=== PATIENT | male | born 1975 | race Caucasian/White ===

== ENCOUNTER 2018-04-07 15:21 | Emergency (ER) | payer MEDICAID ==
[2018-04-07] MEDS ORDERED: NS 1,000 ML IV ONE ×2 (15:36→16:14)
--- NOTE | 2018-04-07 15:36 | EDPHY ---
H & P Time Seen by Provider: 04/07/18 15:26 HPI/ROS: Chief complaint. Abdominal pain HPI. 42-year-old male presents to the emergency department with abdominal pain for apparently a couple days. He says he has been cold and clammy and shaky for 2 days. No fever but just can't get warm. Slight sore throat but no congestion. Mid abdominal pain. No vomiting or diarrhea. No history of abdominal problems or previous abdominal surgery. He says his urine is yellow red. Otherwise no chest discomfort or trouble breathing. No cough. ROS Constitutional. Possible chills Eyes. no problems with vision ENT. sore throat, no nasal drainage Cardiovascular. no chest pain Respiratory. no shortness of breath, no cough Abdominal. Left side abdominal pain . no problems urinating MS. no calf pain/swelling, no neck/back pain, no joint pain Skin. no rash Lymph. no swollen glands Neuro. no headache, no dizziness, no difficulty walking or with speech Past Medical/Surgical History: Denies past medical history Social History: Single, daily smoker, no alcohol Smoking Status: Current some day smoker Physical Exam: General Appearance: Alert well-developed male mild distress vital signs stable. Afebrile Eyes: Pupils equal and round no pallor or injection. ENT, Mouth: Mucous membranes are moist. No pharyngeal injection Respiratory: There are no retractions, lungs are clear to auscultation. Cardiovascular: Regular rate and rhythm. Gastrointestinal: Abdomen is soft with tenderness at McBurney's point and rebound tenderness. Some tenderness on the left side. Normal bowel sounds. No masses. Neurological: Awake and alert, sensory and motor exams grossly normal. Skin: Warm and dry, no rashes. Musculoskeletal: Neck is supple nontender. Extremities symmetrical, full range of motion. Psychiatric: Patient is oriented X 3, there is no agitation. Constitutional: Initial Vital Signs Temperature (C) 36.7 C 04/07/18 15:25 Heart Rate 81 04/07/18 15:25 Respiratory Rate 18 04/07/18 15:25 Blood Pressure 122/86 H 04/07/18 15:25 O2 Sat (%) 97 04/07/18 15:25 O2 Delivery Mode Room Air Allergies/Adverse Reactions: Penicillins Allergy (Unknown, Verified 03/08/13 14:02) aslo lists multiple psych meds Allergy (Unknown, Uncoded 03/08/13 14:02) Home Medications: Medication Instructions Recorded *Pharmacy Completed See Comment 03/08/13 03/08/13 Suzifkimberly Unk Dose 03/08/13 Medical Decision Making - Diagnostics Imaging Results: Imaging Impressions Abdomen CT 04/07/18 16:14 Impression: Limited study due to lack of intra-abdominal fat. There is significant stool within the colon, possibly related to constipation. The appendix is not confidently identified. Findings and recommendations discussed with ALEX LESLIE at 1650 hour, 2017. CT abdomen and pelvis with IV contrast shows constipation. Appendix is not well visualized. Reviewed by me and discussed with Radiology Procedures: IV normal saline ED Course/Re-evaluation: Re-evaluation at 5:00 p.m.. Patient and I discussed laboratory evaluation, imaging studies. We discussed treatment plan including criteria for return importance of follow-up and further evaluation. He expresses understanding and agreement Urine is concentrated but no evidence for urinary tract infection Re-evaluation again at 6:20 p.m.. Patient is stable. He he and I again discussed imaging and lab results including treatment plan and criteria for return and importance of follow-up and further evaluation. He again expresses understanding Differential Diagnosis: I considered diverticulitis, appendicitis, small-bowel obstruction, urinary tract infection - Data Points Laboratory Results: Laboratory Results 04/07/18 15:30 04/07/18 15:30 04/07/18 04/07/18 04/07/18 17:10 15:30 15:30 WBC RBC Hgb Hct MCV MCH MCHC RDW Plt Count MPV Neut % (Auto) Lymph % (Auto) Coles % (Auto) Eos % (Auto) Baso % (Auto) Nucleat RBC Rel Count Absolute Neuts (auto) Absolute Lymphs (auto) Absolute Monos (auto) Absolute Eos (auto) Absolute Basos (auto) Absolute Nucleated RBC Immature Gran % Immature Gran # Sodium 139 mEq/L mEq/L (135-145) Potassium 3.6 mEq/L mEq/L (3.3-5.0) Chloride 108 mEq/L mEq/L (97-110) Carbon Dioxide 19 mEq/l L mEq/l (22-31) Anion Gap 12 mEq/L mEq/L (8-16) BUN 22 mg/dL mg/dL (7-23) Creatinine 0.8 mg/dL mg/dL (0.7-1.3) Estimated GFR > 60 Glucose 76 mg/dL mg/dL (70-100) Calcium 9.5 mg/dL mg/dL (8.5-10.4) Total Bilirubin 1.1 mg/dL mg/dL (0.1-1.4) AST 47 IU/L IU/L (17-59) ALT 44 IU/L IU/L (21-72) Alkaline Phosphatase 83 IU/L IU/L (38-126) Total Protein 7.3 g/dL g/dL (6.3-8.2) Albumin 4.4 g/dL g/dL (3.5-5.0) Lipase 104 IU/L IU/L (23-300) Urine Color YELLOW Urine Appearance CLEAR Urine pH 5.0 (5.0-7.5) Ur Specific [place] > 1.035 H (1.002-1.030) Urine Protein NEGATIVE (NEGATIVE) Urine Ketones 1+ H (NEGATIVE) Urine Blood NEGATIVE (NEGATIVE) Urine Nitrate NEGATIVE (NEGATIVE) Urine Bilirubin NEGATIVE (NEGATIVE) Urine Urobilinogen NEGATIVE EU EU (0.2-1.0) Ur Leukocyte Esterase NEGATIVE (NEGATIVE) Urine RBC 1-3 /hpf /hpf (0-3) Urine WBC 1-3 /hpf /hpf (0-3) Ur Epithelial Cells TRACE /lpf /lpf (NONE-1+) Hyaline Casts 1-5 /lpf /lpf (0-1) Urine Mucus TRACE /lpf /lpf (NONE-1+) Urine Glucose NEGATIVE (NEGATIVE) Ethyl Alcohol < 10 mg/dL mg/dL (0-10) 04/07/18 15:30 WBC 6.82 10^3/uL 10^3/uL (3.80-9.50) RBC 5.23 10^6/uL 10^6/uL (4.40-6.38) Hgb 15.8 g/dL g/dL (13.7-17.5) Hct 44.7 % % (40.0-51.0) MCV 85.5 fL fL (81.5-99.8) MCH 30.2 pg pg (27.9-34.1) MCHC 35.3 g/dL g/dL (32.4-36.7) RDW 13.7 % % (11.5-15.2) Plt Count 215 10^3/uL 10^3/uL (150-400) MPV 9.3 fL fL (8.7-11.7) Neut % (Auto) 61.1 % % (39.3-74.2) Lymph % (Auto) 30.5 % % (15.0-45.0) Coles % (Auto) 6.7 % % (4.5-13.0) Eos % (Auto) 0.6 % % (0.6-7.6) Baso % (Auto) 1.0 % % (0.3-1.7) Nucleat RBC Rel Count 0.0 % % (0.0-0.2) Absolute Neuts (auto) 4.16 10^3/uL 10^3/uL (1.70-6.50) Absolute Lymphs (auto) 2.08 10^3/uL 10^3/uL (1.00-3.00) Absolute Monos (auto) 0.46 10^3/uL 10^3/uL (0.30-0.80) Absolute Eos (auto) 0.04 10^3/uL 10^3/uL (0.03-0.40) Absolute Basos (auto) 0.07 10^3/uL 10^3/uL (0.02-0.10) Absolute Nucleated RBC 0.00 10^3/uL 10^3/uL (0-0.01) Immature Gran % 0.1 % % (0.0-1.1) Immature Gran # 0.01 10^3/uL 10^3/uL (0.00-0.10) Sodium Potassium Chloride Carbon Dioxide Anion Gap BUN Creatinine Estimated GFR Glucose Calcium Total Bilirubin AST ALT Alkaline Phosphatase Total Protein Albumin Lipase Urine Color Urine Appearance Urine pH Ur Specific [place] Urine Protein Urine Ketones Urine Blood Urine Nitrate Urine Bilirubin Urine Urobilinogen Ur Leukocyte Esterase Urine RBC Urine WBC Ur Epithelial Cells Hyaline Casts Urine Mucus Urine Glucose Ethyl Alcohol Medications Given: Discontinued Medications Sodium Chloride (Ns) 1,000 mls @ 0 mls/hr IV EDNOW ONE; Wide Open PRN Reason: Protocol Stop: 04/07/18 15:37 Last Admin: 04/07/18 16:10 Dose: 1,000 mls Sodium Chloride (Ns) 1,000 mls @ 0 mls/hr IV EDNOW ONE; Wide Open PRN Reason: Protocol Stop: 04/07/18 16:15 Last Admin: 04/07/18 16:53 Dose: 1,000 mls Departure - Departure Disposition: Home, Routine, Self-Care Clinical Impression: Abdominal pain Qualifiers: Abdominal location: generalized Qualified Code(s): R10.84 - Generalized abdominal pain Condition: Good Instructions: High Fiber Diet (ED), Constipation (ED) Additional Instructions: Increased fluids including fruit and prune juice. Please purchase a bottle of magnesium citrate at the grocery store and drink the whole bottle to relieve your constipation Return for worsening abdominal pain, fever, vomiting. Recheck in 1-2 days if not improved Referrals: Patient,NotPresent [Unknown] - As per Instructions Marjorie Mejia MD [[facility] [place] - 1 day, if not improved
[2018-04-07 15:39] LABS: PLATELET COUNT 215 10^3/uL (150-400)
[2018-04-07] MEDS ORDERED: IOPAMIDOL (ISOVUE-300) 100 ML BTL ONE (16:18)
[2018-04-07 18:26] VITALS: BP 122/70
== END 2018-04-07 18:33 | disposition home or self-care (01) ==
LOC: EDUNIT#
DX: R10.84 Generalized abdominal pain (principal); E86.9 Volume depletion, unspecified
CPT/HCPCS: G0480; Q9967

== ENCOUNTER 2018-05-02 20:37 | Emergency (ER) | payer MEDICAID ==
[2018-05-02] MEDS ORDERED: ONDANSETRON DISINTEGRATING 4 MG TAB PO ONE (21:59)
[2018-05-02] MEDS ORDERED: NS 1,000 ML IV ONE (22:06)
--- NOTE | 2018-05-02 22:09 | EDPHY ---
H & P Stated Complaint: vomit x 1 Time Seen by Provider: 05/02/18 22:00 HPI/ROS: HPI The patient presents with abdominal pain and vomiting which began about 1 hr prior to presentation. At about 7 or 8:00 p.m. he had dinner of a hamburger at a fast food restaurant. After this he has had multiple episodes of nonbloody nonbilious emesis associated with diffuse aching abdominal pain. He has not had any diarrhea. He does not have a fever. He denies any sick contacts. He is brought in by ambulance. He was here on April 07 for abdominal pain with an unremarkable workup.. REVIEW OF SYSTEMS 10 systems were reviewed and negative with the exception of the elements mentioned in the history of present illness. PMHx: Psychiatric disease, patient is currently unsure of his diagnoses Soc Hx: Homeless, sleeps on the street, does not drink alcohol PHYSICAL General Appearance: Alert, no distress, disheveled with poor hygiene Eyes: Pupils equal and round no pallor or injection ENT, Mouth: Mucous membranes moist Respiratory: There are no retractions, lungs are clear to auscultation Cardiovascular: Regular rate and rhythm Gastrointestinal: Abdomen is soft and mildly diffusely tender, no masses, bowel sounds normal Neurological: A&O, moves all extremities Skin: Warm and dry, no rashes Musculoskeletal: Neck is supple non tender Extremities: symmetrical, full range of motion Psychiatric: Patient is oriented X 3, there is no agitation Source: Patient Exam Limitations: No limitations - Personal History Current Tetanus/Diphtheria Vaccine: Unsure Current Tetanus Diphtheria and Acellular Pertussis (TDAP): Unsure - Medical/Surgical History Hx Asthma: No Hx Chronic Respiratory Disease: No Hx Diabetes: No Hx Cardiac Disease: No Hx Renal Disease: No Hx Cirrhosis: No Hx Alcoholism: Yes Hx HIV/AIDS: No Hx Splenectomy or Spleen Trauma: No Other PMH: pt denies past med hx. poor historian - Social History Smoking Status: Current some day smoker Constitutional: Initial Vital Signs Temperature (C) 36.7 C 05/02/18 20:43 Heart Rate 59 L 05/02/18 20:43 Respiratory Rate 16 05/02/18 20:43 Blood Pressure 152/100 H 05/02/18 20:43 O2 Sat (%) 95 05/02/18 20:43 O2 Delivery Mode Room Air Allergies/Adverse Reactions: Penicillins Allergy (Unknown, Verified 03/08/13 14:02) aslo lists multiple psych meds Allergy (Unknown, Uncoded 03/08/13 14:02) Home Medications: Medication Instructions Recorded *Pharmacy Completed See Comment 03/08/13 03/08/13 Girma Unk Dose 03/08/13 Medical Decision Making Differential Diagnosis: 42-year-old homeless male with past psychiatric disease presents with several hours of nausea and vomiting after eating dinner associated with diffuse abdominal pain. On exam, he is uncomfortable and groaning, he is having active vomiting. While he has diffuse tenderness of his abdomen this is quite mild. He was here recently for a similar episode. Differential diagnosis includes toxin mediated enterocolitis, viral gastroenteritis, appendicitis. In the emergency department, patient was given Zofran 0 DT and 1 L of fluid with improvement in his symptoms. - Data Points Laboratory Results: Laboratory Results 05/02/18 22:46 05/02/18 22:46 05/02/18 05/02/18 22:46 22:46 WBC 13.10 10^3/uL H 10^3/uL (3.80-9.50) RBC 5.05 10^6/uL 10^6/uL (4.40-6.38) Hgb 15.4 g/dL g/dL (13.7-17.5) Hct 44.2 % % (40.0-51.0) MCV 87.5 fL fL (81.5-99.8) MCH 30.5 pg pg (27.9-34.1) MCHC 34.8 g/dL g/dL (32.4-36.7) RDW 13.8 % % (11.5-15.2) Plt Count 248 10^3/uL 10^3/uL (150-400) MPV 8.9 fL fL (8.7-11.7) Neut % (Auto) 83.2 % H % (39.3-74.2) Lymph % (Auto) 12.7 % L % (15.0-45.0) Hall % (Auto) 3.1 % L % (4.5-13.0) Eos % (Auto) 0.2 % L % (0.6-7.6) Baso % (Auto) 0.3 % % (0.3-1.7) Nucleat RBC Rel Count 0.0 % % (0.0-0.2) Absolute Neuts (auto) 10.90 10^3/uL H 10^3/uL (1.70-6.50) Absolute Lymphs (auto) 1.66 10^3/uL 10^3/uL (1.00-3.00) Absolute Monos (auto) 0.41 10^3/uL 10^3/uL (0.30-0.80) Absolute Eos (auto) 0.03 10^3/uL 10^3/uL (0.03-0.40) Absolute Basos (auto) 0.04 10^3/uL 10^3/uL (0.02-0.10) Absolute Nucleated RBC 0.00 10^3/uL 10^3/uL (0-0.01) Immature Gran % 0.5 % % (0.0-1.1) Immature Gran # 0.06 10^3/uL 10^3/uL (0.00-0.10) Sodium 136 mEq/L mEq/L (135-145) Potassium 3.7 mEq/L mEq/L (3.3-5.0) Chloride 101 mEq/L mEq/L (97-110) Carbon Dioxide 25 mEq/l mEq/l (22-31) Anion Gap 10 mEq/L mEq/L (8-16) BUN 20 mg/dL mg/dL (7-23) Creatinine 0.7 mg/dL mg/dL (0.7-1.3) Estimated GFR > 60 Glucose 115 mg/dL H mg/dL (70-100) Calcium 9.8 mg/dL mg/dL (8.5-10.4) Total Bilirubin 0.6 mg/dL mg/dL (0.1-1.4) AST 56 IU/L IU/L (17-59) ALT 75 IU/L H IU/L (21-72) Alkaline Phosphatase 91 IU/L IU/L (38-126) Total Protein 7.4 g/dL g/dL (6.3-8.2) Albumin 4.3 g/dL g/dL (3.5-5.0) Lipase 73 IU/L IU/L (23-300) Medications Given: Discontinued Medications Sodium Chloride (Ns) 1,000 mls @ 0 mls/hr IV EDNOW ONE; Wide Open PRN Reason: Protocol Stop: 05/02/18 22:07 Last Admin: 05/02/18 22:52 Dose: 1,000 mls Ondansetron HCl (Zofran Odt) 4 mg PO EDNOW ONE Stop: 05/02/18 22:00 Last Admin: 05/02/18 22:05 Dose: 4 mg Departure - Departure Disposition: Home, Routine, Self-Care Clinical Impression: Vomiting Qualifiers: Vomiting type: unspecified Vomiting Intractability: non-intractable Nausea presence: without nausea Qualified Code(s): R11.11 - Vomiting without nausea Condition: Good Instructions: Acute Nausea and Vomiting (ED) Additional Instructions: Please return to the emergency department if you are worse in any way. Referrals: [facility],. [Clinic] - As per Instructions
[2018-05-02 23:05] LABS: PLATELET COUNT 248 10^3/uL (150-400)
[2018-05-02] MEDS ORDERED: ONDANSETRON 4MG PREPACK#2 BTL TAKEHOME ONE (23:40)
[2018-05-03 00:04] VITALS: BP 148/82
== END 2018-05-03 00:05 | disposition home or self-care (01) ==
LOC: EDUNIT#
DX: R11.10 Vomiting, unspecified (principal); E86.9 Volume depletion, unspecified; F17.200 Nicotine dependence, unspecified, uncomplicated; Z59.0 Homelessness

== ENCOUNTER 2018-10-26 16:18 | Inpatient (IN) | payer MEDICAID, OTHER ==
[2018-10-26 16:42] LABS: PLATELET COUNT 291 10^3/uL (150-400)
[2018-10-26] MEDS ORDERED: OLANZapine DISINTEGR 10 MG TAB PO ONE (16:49)
--- NOTE | 2018-10-26 16:49 | EDPHY ---
H & P Stated Complaint: Talking nonsense-throwing objects at cars - Medical/Surgical History Hx Asthma: No Hx Chronic Respiratory Disease: No Hx Diabetes: No Hx Cardiac Disease: No Hx Renal Disease: No Hx Cirrhosis: No Hx Alcoholism: Yes Hx HIV/AIDS: No Hx Splenectomy or Spleen Trauma: No Other PMH: pt denies past med hx. poor historian - Social History Smoking Status: Current some day smoker Time Seen by Provider: 10/26/18 16:21 HPI/ROS: CHIEF COMPLAINT: Rambling speech HISTORY OF PRESENT ILLNESS: 43-year-old male with to so affective disorder presents with rambling speech. He was walking on [place] this afternoon, speaking nonsensically and throwing objects at cars. He was picked up by police and brought to the emergency department. He is unable to provide any clinical history. REVIEW OF SYSTEMS: Unable to obtain (Jasmine Lee) - Physical Exam Exam: General Appearance: Alert, disheveled, speaking nonsensically Eyes: Pupils equal and round, no conjunctival pallor or injection ENT, Mouth: Mucous membranes moist Neck: Normal inspection Respiratory: Lungs are clear to auscultation Cardiovascular: Regular rate and rhythm Gastrointestinal: Abdomen is soft and nontender Neurological: Alert, nonfocal exam Skin: Warm and dry Extremities: Normal inspection Psychiatric: Nonsensical speech, does not appear anxious (Jasmine Lee) Constitutional: Initial Vital Signs Temperature (C) 36.5 C 10/26/18 16:26 Heart Rate 92 10/26/18 16:26 Respiratory Rate 20 10/26/18 16:26 Blood Pressure 117/66 10/26/18 16:26 O2 Sat (%) 92 10/26/18 16:26 O2 Delivery Mode Room Air Allergies/Adverse Reactions: Penicillins Allergy (Unknown, Verified 03/08/13 14:02) aslo lists multiple psych meds Allergy (Unknown, Uncoded 03/08/13 14:02) Home Medications: Medication Instructions Recorded *Pharmacy Completed See Comment 03/08/13 03/08/13 Abilify Unk Dose 03/08/13 Medical Decision Making ED Course/Re-evaluation: This patient presents with acute psychosis. He was placed on an M1 hold by ne. Zyprexa 10 mg ODT given. Old medical record reviewed. Admitted in 2012 for schizoaffective disorder. Urine tox screen positive for amphetamines. The patient will need to wait until tomorrow morning for mental health evaluation. 11:00 p.m.-signed over to Dr. Salinas at shift change. (Jasmine Lee) Other Provider: [address] Lee pending mental health evaluation in the morning. 0700 patient signed out to Dr. Banerjee pending evaluation. No issues during my care this patient overnight. (Ty Salinas) Patient accepted at [address] [place] [address] by practitioner Chery. Transfer paperwork completed (Armaan Banerjee) - Data Points Laboratory Results: Laboratory Results 10/26/18 16:20 10/26/18 16:20 10/26/18 19:15 Urine Opiates Screen NEGATIVE (NEGATIVE) Urine Barbiturates NEGATIVE (NEGATIVE) Ur Phencyclidine Scrn NEGATIVE (NEGATIVE) Ur Amphetamine Screen NON-NEGATIVE H (NEGATIVE) U Benzodiazepines Scrn NEGATIVE (NEGATIVE) Urine Cocaine Screen NEGATIVE (NEGATIVE) U Marijuana (THC) Screen NON-NEGATIVE H (NEGATIVE) Medications Given: Discontinued Medications Olanzapine (Zyprexa Zydis) 10 mg PO EDNOW ONE Stop: 10/26/18 16:50 Last Admin: 10/26/18 16:57 Dose: 10 mg Departure - Departure Disposition: [facility] IP Clinical Impression: Acute psychosis Condition: Fair Referrals: Patient,NotPresent [Primary Care Provider] - As per Instructions
--- NOTE | 2018-10-26 20:43 | ASMTLCPROG ---
Notes Note: Notes: This press writer attempted to wake pt for evaluation. Pt only mumbled responses. Pt appears too sedated for evaluation at this time. Date Signed: 10/26/2018 08:43 PM Electronically Signed By:Michaela Rush
--- NOTE | 2018-10-27 07:49 | ASMTTLCEVL ---
TLC Evaluation - Basic Information Evaluation Start Date and 10/27/2018 06:45 AM Time Hospital Status Answers: M1 Hold 72-hr M1 Hold Start Date 10/26/2018 05:45 PM and Time Narrative Notes: Pt is a 43 yo, homeless, unemployed, male with known history of schizoaffective disorder-bipolar type, alcohol use disorder, amphetamine use disorder, and cannabis use disorder, who was walking on [address], speaking nonsensically and throwing objects at cars and was brought to [facility] ED by [employer] then placed on M1 hold by ED provider which noted: Pt found walking outside with nonsensical speech and throwing objects at cars. Pt was unable to provide any clinical history to the ED provider and did not appear to be a reliable historian. BAL was zero. UDS results were positive for amphetamine and marijuana. Diagnosis History Notes: Schizoaffective Disorder, Bipolar Type; Alcohol Use Disorder, severe; Amphetamine-Type Substance Use Disorder, severe; Cannabis Use Disorder, severe. Prior suicide attempts Notes: None noted per prior records. Prior hospitalizations Notes: [facility] in 2006; [place] in the winter of 2011; [facility] from 03/08/13 to 03/21/13 and his father and sister were contacted who wanted him to return to [place] via bus and arrangements were made for a bus ticket to [facility]. Pt was to continue medications and follow up with a psychiatrist in [place]. Treatment Responses Notes: Pt has history of noncompliance with medication and treatment follow up. History of violence Notes: Pt has prior history of an assault arrest in 2009. Therapist: None. Psychiatrist: None. Medications (name, dosage, route, freq uency) Notes: Pt has been off his medications. He was administered Zyprexa Zydis 10 mg po at 1657 hrs. Prior records noted that pt had referenced taking Abilify, [place], Trilafon, Geodon and Seroquel in the past and had stated that none of them were helpful and tended to make him tired and have no thoughts. He was particularly disdainful of his past experience with Risperdal. While at [facility] 3 in 2012, pt agreed to take Invega Sustenna 6 mg daily and given Invega Sustenna injection 234 mg IM on 03/12/13. He was given a booster of Invega Sustenna of 156 mg on 03/19/13 and po Invega was discontinued on 03/20/13. He was started on Hop[place] Carbonate ER 1500 mg. Allergies/Reaction Notes: Penicillin, and prior records noted pt is lactose intolerant. Sleep Notes: Decreased. Appetite Notes: Decreased. Medical/Surgical history Notes: Noncontributory. Substance use history (frequency, intensity, his tory, duration) Notes: BAL was zero. UDS results were positive for amphetamine and marijuana. Prior records reflected a history of alcohol and cannabis dependence and that he acknowledged being a meth addict but said he quit in 2010. Family composition Notes: Pts father had reportedly since pts last admission to [address] [place] [address] in 2012. Pt has a sister and a step-mother ([facility]) [phone] who reside in [place]. Need for family Answers: No participation in patient's care Family psychiatric/substance abuse history Notes: Prior records noted pt denied awareness of any family history of mental illness. Developmental history Notes: Pt is originally from [place], [place]. Otherwise, unknown per prior records and pt currently not a reliable historian. Abuse concerns Answers: None Marital status/children Notes: Pt is single, never no dependents. Living situation Notes: Homeless. Sexual history/orientation Notes: Not active. Heterosexual. Peer support/family strengths Notes: None identified. Education level/history Notes: He dropped out of school in the 10th grade. Work history Notes: Not employed. 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 Notes: None. Legal Notes: Pt was in [facility] in 2009 for assault and had been in the PACE program in [facility] and took Abilify and [place] and reported taking them only because they were a condition of his probation, which ended in April 2012. Moravian/Spiritual Notes: None reported which might impact treatment. Leisure Notes: None reported. Collateral Notes: Prior [facility] records; [facility]. Patient's strengths Answers: Artistic/Creative/Musical (Please select at least TWO strengths): Athletic TLC Evaluation - Mental Status Exam Appearance: Answers: Unclean Unkempt Disheveled Eye Contact: Answers: Avoiding Mood: Answers: Irritable Labile Affect: Answers: Distracted Guarded Irritable Labile Subdued Suspicious Behavior: Answers: Uncooperative Anxious Erratic Guarded Impulsive Passive Resistive to Care Suspicious Speech: Answers: Irrelevant Illogical Circumstantial Dramatic Grandiose Loose Associations Nonsensical Perseverating Pressured Rambling Thought Process: Answers: Disorganized Disoriented Circumstantial Loose Associations Paranoid Tangential Insight: Answers: Poor Judgement: Answers: Poor Manic Signs/Symptoms Answers: Distractibility Impulsivity Irritability Mood Swings Depression Answers: Difficulty Concentrating Signs/Symptoms: Psychomotor Agitation Delusions: Answers: Ideas of Reference Paranoid Ideation Persecution Current Stage of Change Answers: Precontemplation Pt reported to have Answers: No suicidal/self-injuring ideation/behavior? Pt reported to be making Answers: No suicidal/self-injuring threats? Pt reported to have Answers: Yes aggression/assault ideation/behavior? Pt reported to be making Answers: No aggression/assault threats? Pt exhibits inability to Answers: Yes care for self/grave disability? Ideation/behavior is Answers: Yes chronic? Patient has a specific Answers: No plan? Pt has access to means to Answers: No execute the plan? Ideation involves Answers: No serious/lethal intent? Ideation has Answers: Yes delusional/hallucinatory content? History of Answers: No suicidal/self-injuring ideation, behavior, or threats? History of Answers: Yes aggressive/assaultive ideation, behavior, or threats? History of serious Answers: No physical harm to self/others while in treatment setting? TLC Evaluation - Suicide/Homicide Risk Suicide Risk Factors: Answers: < 20 or > 40 Years of Age Agitation Alcohol/Heavy Drug Use Anhedonia Bipolar Disorder Cluster "B" D/O or Traits Impulsivity Inadequate Social Support Lack of Moravian Support Lack of Social Support Lack/Loss of Employment Low Intelligence Psychotic Disorder Rapid Mood Shifts Schizoaffective Disorder Single Unstable Living Situation Homicide/violence risk Answers: Cluster "B" D/O or Traits factors: Previous Hx of Violence Current Suicidal Answers: No Ideation? Current Suicidal Ideation Answers: No in the Past 48 Hours? Current Suicidal Ideation Answers: No in the Past Month? Current Suicidal Answers: No Ideation, Worst Ever? Suicide Internal Answers: None Protective Factors: Suicide External Answers: None Protective Factors: Ranking of patient's Answers: Low suicidal risk: Ranking of patient's Answers: Moderate homicidal risk: TLC Evaluation - Wrap-up AXIS I Diagnosis (include DSM-V and ICD-10 codes), must also be entered in [facility], which is the source of truth. Notes: Schizoaffective Disorder, Bipolar Type 295.70 (F25.0) Alcohol Use Disorder, severe 303.90 (F10.20) Amphetamine-Type Substance Use Disorder, severe 304.40 (F15.20) Cannabis Use Disorder, severe 304.30 (F12.20) Pt unable to complete BDI/BSS questionnaires due to psychosis. In consultation with [facility] ED physician, Armaan Banerjee MD and on-call Advanced Psychiatric Nurse Practitioner, Joe Gtotlieb APN, both concurred that pt appears to meet 27-65 criteria requiring psychiatric hospitalization as pt appears to be gravely disabled due to a mental illness condition. Pt was read the Patient Rights and Responsibilities Statement on 10/27/18 at 0730 hrs, original placed on chart, and was given photocopy of Rights. Pt declined to sign the Patient Rights. Pt was given the 3[facility] prohibited belongings list while in the ED. Evaluation End Date and 10/27/2018 07:45 AM Time (HH:MM): Date Signed: 10/27/2018 07:48 AM Electronically Signed By:Ronal Luo
--- NOTE | 2018-10-27 07:50 | ASMTTCLDSP ---
TLC Discharge Disposition Disposition: Answers: Admit Disposition Notes: Notes: Admit 3N. Discharge Concerns/Recommendations: Notes: Pt unable to complete BDI/BSS questionnaires due to psychosis. In consultation with [facility] ED physician, Armaan Banerjee MD and on-call Advanced Psychiatric Nurse Practitioner, Joe Gottlieb APN, both concurred that pt appears to meet 27-65 criteria requiring psychiatric hospitalization as pt appears to be gravely disabled due to a mental illness condition. Pt was read the Patient Rights and Responsibilities Statement on 10/27/18 at 0730 hrs, original placed on chart, and was given photocopy of Rights. Pt declined to sign the Patient Rights. Pt was given the 3N prohibited belongings list while in the ED. Was patient given the Answers: Yes Inpatient Behavioral Health Prohibited Belongings List while in the ED? For inpatient Joe Gottlieb APN admission, the following psychiatrist agreed to accept patient for admission to Behavioral Health ([facility]): Type of Hold: Answers: M1/72-hour Hold Hold initiated by: Answers: ED Physician Date Signed: 10/27/2018 07:49 AM Electronically Signed By:Ronal Luo
--- NOTE | 2018-10-27 08:19 | PDCONSULT ---
Engineering Mathematician Note: HPI: Ej Luciano is a 43 yo M with a PMHx of reported schizoaffective d/o who presents to [facility] after being brought in by the police for nonsensical speech and throwing objects at cars. Patient denies any medical or psychiatric history during my examination. He was given Zyprexa for agitation in the ED. Vitals signs and labs were within normal limits on admission, UDS was positive for amphetamines and THC. Patient denied any pain or symptoms as well. ROS: Patient denied significant symptoms including chest pain, sob, abdominal pain, n/v, f/c, edema, palpitations. PE: GEN: Appears unkempt, disheveled HEENT: EOMI, PERRLA CARDS: No edema present Lungs: No respiratory distress ABD: Non-distended Neuro: Awake, alert, disoriented Skin: No c/c/e present : No rosa present A&P: 1. Schizoaffective disorder - Per chart review patient was admitted for schizoaffective d/o in 2013 - Management per inpatient psych team for further evaluation 2. Amphetamine Intoxication - UDS + on admission - S/p Zyprexa with mild agitation on exam 3. Nicotine Dependence - Reported in 2013 - Nicotine patch as needed Patient is medically cleared to be admitted to for further assessment and management of active psychiatric issues.
[2018-10-27] MEDS ORDERED: OLANZapine DISINTEGR 10 MG TAB PO ONE (08:25)
[2018-10-27] MEDS ORDERED: ACETAMINOPHEN 325 MG TAB PO PRN (10:46)
[2018-10-27] MEDS ORDERED: LORazepam 0.5 MG TAB PO PRN (10:46)
[2018-10-27] MEDS ORDERED: NICOTINE POLACRILEX 2 MG GUM B PRN (10:46)
[2018-10-27] MEDS ORDERED: MAG HYDROX/AL HYDROX/SIMETH 30 ML UDCUP PO PRN (10:46)
[2018-10-27] MEDS ORDERED: MAGNESIUM HYDROXIDE 30 ML UDCUP PO PRN (10:46)
[2018-10-27] MEDS ORDERED: OLANZapine DISINTEGR 10 MG TAB PO PRN (10:48)
--- NOTE | 2018-10-27 11:26 | PDMN ---
Medical Necessity Medical necessity: Pt meets IP criteria per [employer] & MCG [id number]; est los >2 mn for eval/tx of schizoaffective disorder; admit for further monitoring, crisis stabilization, safety & med management; hx amphetamine use, homelessness; per consult & order 10/27/18
--- NOTE | 2018-10-27 12:46 | BAPA ---
[f rep st] ADMISSION PSYCHIATRIC ASSESSMENT DATE OF SERVICE: 10/27/2018 CHIEF COMPLAINT: Patient does not want to meet with this OPERATION RESEARCH ANALYST at this time for evaluation. Patient refuses to meet for psychiatric assessment history. HISTORY OF PRESENT ILLNESS: From the ED note dated 10/26/18, a patient with a history of schizoaffective disorder presents to the emergency room with rambling speech. Patient was found walking on [address], speaking nonsensically and throwing objects at cars. Patient was picked up by police and brought to the emergency department. Patient was unable to provide any clinical history during the emergency room evaluation. From the [facility] evaluation dated 10/27/18, patient was placed on a 72-hour M1 hold with start date and time of 10/26/18 at 5:45 p.m. Patient was admitted for involuntary hospitalization on M1 hold due to being gravely disabled. Patient was hospitalized for safety, crisis stabilization, and medication evaluation. Will continue to gather history of present illness throughout the course of the patient's hospitalization. PAST PSYCHIATRIC HISTORY: From the [facility] evaluation, patient is currently homeless, unemployed, has a known psychiatric history of schizoaffective disorder, bipolar type, alcohol use disorder, amphetamine use disorder, and cannabis use disorder. There is no record of patient attempting suicide in the past. Patient has prior hospitalizations, including being hospitalized at [facility] in 2006. Patient was also hospitalized in [place] at the [place] in [place]. Patient was hospitalized at [address] from 03/08/13 to 03/21/13. At time of discharge, patient was to return to [place] by bus, and arrangements were made by his family. Patient was to continue medications and follow up with a psychiatrist in [place]. Patient has a history of nonadherence to prescribed medications and also known to not follow up with outpatient psychiatric services after discharge. It is reported that patient has been off his medications. Patient's past medications include Abilify, lithium, Trilafon, Geodon, and Seroquel. Patient also has been on Invega Sustenna, and this medication was administered during the patient's hospitalization at [address] in 2012. Patient was also started on lithium carbonate ER 1500 mg. Will continue to gather patient's past psychiatric history throughout the course of hospitalization. ALLERGIES: 1. Penicillins. 2. Records also indicate list multiple psych meds. Specific psych meds unknown at this time. Will follow up with patient when appropriate to do so. CURRENT MEDICATIONS: 1. Tylenol 650 mg p.o. q.4 hours p.r.n. 2. Ativan 1 mg p.o. q.6 hours p.r.n. 3. Maalox syrup 30 mL p.o. q.6 hours p.r.n. 4. Milk of magnesia 30 mL p.o. daily p.r.n. 5. Nicorette 2 mg q.1 hour p.r.n. 6. Zyprexa Zydis 10 mg p.o. q.6 hours p.r.n. PAST MEDICAL HISTORY: Medical and surgical history from the TLC evaluation is reported to be noncontributory. Will continue to gather patient's past medical history throughout the course of the patient's hospitalization. SOCIAL HISTORY: Patient is currently homeless and unemployed. Patient has a history of an assault arrest in 2009. Patient's father has reportedly since patient's last admission to [address] in 2012. Patient has a sister and stepmother who reside in [place]. Patient is originally from [place], [place]. Patient is single, never , with no dependents. Patient describes sexual orientation as heterosexual and reports he is currently not sexually active. Patient reportedly dropped out of school in the 10th grade. 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 Patient was jailed in 2009 for assault and had been in the PACE program in [facility] and took Abilify and lithium and reported he was only taking the medications due to condition of his probation, which ended in April 2012. There is no hindu or spiritual practice indicated that might impact patient's treatment. Will continue to gather patient's social history throughout the course of the patient's hospitalization when appropriate. SUBSTANCE USE HISTORY: Patient's BAL was zero at time of admission. UDS results were positive for amphetamine and marijuana. 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 Will continue to gather patient's substance use history throughout the course of patient's hospitalization. FAMILY PSYCHIATRIC HISTORY: Prior records indicate patient has denied any awareness of family history of mental illness. Will continue to gather family psychiatric history throughout the course of the patient's hospitalization. ADMISSION LABS AND STUDIES: 1. CBC within normal limits, except hemoglobin was low at 13.6 and hematocrit was low at 39.9. 2. BMP within normal limits, except glucose was elevated at 104. 3. Hemoglobin A1c is pending. 4. Liver function is pending. 5. Lipid panel is pending. 6. Toxicology screen non-negative for amphetamine and non-negative for THC. Negative for the other substance screened and negative for ethyl alcohol. MENTAL STATUS EXAM: Patient is an undernourished male, looking older than stated chronological age. Attire is appropriate, and dress is hospital garb. Grooming status is inappropriate and disheveled. Ambulation has been independent. Gait has been normal and coordinated. Posture: Patient lying on bed, avoids eye contact. Eye contact is inappropriate. Motor activity is appropriate. Patient has been observed making purposeful coordinated organized movements with no involuntary movements noted. Attitude is uncooperative. Patient appears disinterested and does not relate well to this interviewer. Language production is spontaneous. Unable to appropriately assess patient's mood at this time. Unable to appropriately assess patient's thought process at this time. Patient does not report suicidal or homicidal thoughts, ideas, or plans. Unable to appropriately assess whether patient is currently experiencing auditory or visual hallucinations. Unable to appropriately assess if patient is currently reporting delusions. Unable to appropriately assess if patient is currently attending to internal stimuli. Unable to appropriately assess patient's orientation at this time. Patient's attention and concentration are poor. Patient's insight and judgment are poor. DIAGNOSES: Based on the patient's history and current presentation, patient's diagnoses are: 1. Schizoaffective disorder, bipolar type. 2. Cannabis use disorder, severe. 3. Amphetamine use disorder. 4. Homelessness. 5. Rule out alcohol use disorder. FORMULATION: The patient is a 43-year-old male, single, homeless, unemployed, contacted by [employer] on [address] in [place], [place], and presents to the hospital involuntarily and is currently on M1 hold for being gravely disabled. Patient requires continued inpatient care because of recent crisis that led to this hospitalization. Patient presents with problems of psychosis, appears to be unable to appropriately care for himself and communicate his basic needs. The trigger for onset or exacerbation of symptoms is unknown at this time. Patient does have a history of medication nonadherence and polysubstance abuse. Patient has a past psychiatric history of schizoaffective disorder, bipolar type. Response to patient's treatments in the past is unknown at this time. Patient is a high safety risk due to recent crisis that led to this hospitalization. Protective factors while hospitalized include ongoing safety checks, active involvement in treatment, and support from our treatment team. Patient could benefit from inpatient hospitalization for safety , crisis stabilization, and medication evaluation. PLAN: 1. Medications: No medication changes at this time. Will continue current medications listed above. No other medication changes at this time as more time is needed to determine ongoing tolerability and efficacy. Plan is to continue to observe patient for response and side effects from medications, and ongoing monitoring and evaluation. 2. Review with patient informed consent and recommendations for psychotropic medication treatment listed below 3. Labs: no additional labs at this time 4. Therapy: continue milieu and group therapy 5. Further investigation including gathering information from patients relatives and review of past case records to inform treatment plan. 6. Safety/Wellness plan and follow-up outpatient appointments to be established prior to discharge. Next steps are for patient to meet with ostomy care nurse to plan a safe discharge plan and establish outpatient services for ongoing treatment. 7. Confer with inpatient treatment team regarding treatment plan. 8. Address psychosocial stressors by meeting with emergency care tech to establish discharge plan including referrals for outpatient services. 9. Legal status: M1 10. Consider discharge next week if patient is in stable condition, safe, and has a safe discharge plan. 11. Substance abuse interventions: cannabis and methamphetamine ESTIMATED LENGTH OF STAY: 5-7 days PSYCHOTROPIC MEDICATION TREATMENT INFORMED CONSENT and RECOMMENDATIONS: Review nature of condition, diagnosis, and prognosis. Review nature and purpose of psychotropic medication treatment. Review type of psychotropic medications being ordered. Review risk and benefits of psychotropic medication treatment. Review probable length of time will need to take medications. Review risk and benefits of not undergoing psychotropic medication treatment. Review alternative treatments to psychotropic medications. Review psychotropic medications contraindications, drug-drug interactions, side effects, and importance of reporting any side effects to a psychiatric provider or nurse during inpatient hospitalization, and upon discharge to patients psychiatric outpatient provider, primary care provider, or other health director of critical care. Review importance of asking a nurse, psychiatric provider, or primary care provider any questions or problems concerning the psychotropic medications. Verify patient understands the information that has been provided, and understands, accepts, and agrees to psychotropic medications. Review patients safety plan and importance of patient to communicate to staff while hospitalized if patient is ever a danger to self/others, or unable to care for self, and upon discharge, the importance for patient to contact [facility] or [facility], or go to the nearest emergency room, if patient is ever a danger to self/others, or unable to care for self. Recommend that upon discharge patient establish medication management treatment with a psychiatric provider, establishes routine therapy appointments, and follow-up with primary care provider. Verify patient understands and agrees to these recommendations. /[id number]/MODL MTDD
--- NOTE | 2018-10-28 08:58 | ASMTBHMTP ---
Master Treatment Plan Master Treatment Plan Answers: Impaired Reality for: Date: 10/27/2018 Diagnosis on Admission: Schizoaffective Disorder, Bipolar Type 295.70 (F25.0) Expected length of stay: 3-5 days Reason for admission: Notes: Per Report: Pt is a 43 yo, homeless, unemployed, male with known history of schizoaffective disorder-bipolar type, alcohol use disorder, amphetamine use disorder, and cannabis use disorder, who was walking on [address], speaking nonsensically and throwing objects at cars and was brought to [facility] ED by [facility] then placed on M1 hold by ED provider which noted: Pt found walking outside with nonsensical speech and throwing objects at cars. Pt was unable to provide any clinical history to the ED provider and did not appear to be a reliable historian. BAL was zero. UDS results were positive for amphetamine and marijuana. Patient's stated presenting problems: Notes: "I will not answer" Patient's goals for treatment: Notes: "I will not answer" Patient's strengths: Notes: "I will not answer" Identify supports outside of hospital: Notes: "I will not answer" Discharge criteria: Notes: Psychotic symptoms will be reduced or eliminated with return to baseline functioning in affect, thinking and behavior prior to discharge.* Initial disposition plan/considerations: Notes: "I will not answer" Master Treatment Plan Required Signatures Psychiatrist signature: Answers: Psychiatrist: RN on-shift signature: Answers: RN: Patient signature: Answers: Patient: Date Signed: 10/28/2018 08:57 AM Electronically Signed By:Constantine Tucker
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
[2018-10-28] MEDS ORDERED: OLANZapine DISINTEGR 10 MG TAB PO PRN (18:37)
--- NOTE | 2018-10-29 11:15 | ASMTBHDC ---
Notes Note: Notes: CC was unable to confirm client's follow up apts; due to length of stay and the weekend. Follow up with: [facility] [address] [place] [address] This is for the initial 30 minute appt to do paperwork and Ct should bring ID, insurance card, etc. [place] office: [address] [place] [address] Mon, Wed, and Fri 8:30am-2pm. [place] office: [address] [facility], [address] [facility], [place] [address] Mon. and Wed., 9 am-2 pm [place] office: [address] [facility], 2nd floor (adults), [place] [address] Mon-Fri., 9 am-2 pm Date Signed: 10/29/2018 11:14 AM Electronically Signed By:Constantine Tucker
--- NOTE | 2018-10-29 12:59 | ASMTCMCOM ---
CM Note CM Note Notes: CC was able to speak to [facility] (JESSICA) with Dr. Patricia, to gather additional collateral information, etc. At first [facility] was not helpful and declined to answer any questions by staff; however, after speaking for a while [facility] noted that client is a member of the "[employer]" located in [place]. Also, she notes several past mental health as well as substance abuse issues or episodes etc. [facility] took this client phone down and stated she might be able to give this number to his sister who "helps him out some times." Additionally, client remains in bed sleeping, isolating, blunt affect. Moreover, client suggest having some belongings at [facility] and at the [facility], track service person would be (Bisi Castro). Dr. Patricia is considering placing client on hold after gathering additional collateral information, etc. Date Signed: 10/29/2018 12:59 PM Electronically Signed By:Constantine Tucker
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
--- NOTE | 2018-10-30 11:20 | SOAPPROG ---
SOAP Progress Note Assessment/Plan: Assessment: Schizoaffective Disorder, Bipolar Type, complicated by substance abuse. Cannabis Use Disorder, Severe. Amphetamine Use Disorder. No improvement noted. Refusing medications (see subjective/objective note). Patient is not safe to discharge at this time as patient continues to exhibit signs of psychosis, and express psychosis symptoms. Patient requires continued inpatient care because of current psychosis, and requires inpatient level of care to stabilize in order to no longer be gravely disabled due to mental illness. Patient exhibits persistent inability to perform essential function due to psychotic condition due. Patients support system has inability to manage functional impairment at lower level of care. Patient could benefit from continued inpatient hospitalization for crisis stabilization, safety, and medication evaluation. Plan: 1. Psychotropic medications: Patient refusing medications. 2. Review with patient informed consent and recommendations for psychotropic medication treatment listed below 3. Labs: no additional labs at this time 4. Therapy: continue milieu and group therapy 5. Further investigation including gathering information from patients relatives and review of past case records to inform treatment plan. 6. Safety/Wellness plan and follow-up outpatient appointments to be established prior to discharge. Next steps are for patient to meet with patient care technician instructor to plan a safe discharge plan and establish outpatient services for ongoing treatment. 7. Confer with inpatient treatment team regarding treatment plan. 8. Psychosocial stressors addressed through bilingual case manager. 9. Legal status: [facility] 10. Consider discharge next week if patient is in stable condition, safe, and has a safe discharge plan. 11. Substance abuse interventions: THC and methamphetamine PSYCHOTROPIC MEDICATION TREATMENT INFORMED CONSENT and RECOMMENDATIONS: Review nature of condition, diagnosis, and prognosis. Review nature and purpose of psychotropic medication treatment. Review type of psychotropic medications being ordered. Review risk and benefits of psychotropic medication treatment. Review probable length of time patient will need to take medications. Review risk and benefits of not undergoing psychotropic medication treatment. Review alternative treatments to psychotropic medications. Review psychotropic medications contraindications, drug-drug interactions, side effects, and importance of reporting any side effects to a psychiatric provider or nurse during inpatient hospitalization, and upon discharge to patients psychiatric outpatient provider, primary care provider, or other health career development director. Review importance of asking a nurse, psychiatric provider, or primary care provider any questions or problems concerning the psychotropic medications. Verify patient understands the information that has been provided, and understands, accepts, and agrees to psychotropic medications. Review patients safety plan and importance of patient to report to staff while hospitalized if patient is ever a danger to self/others, or unable to care for self, and upon discharge, the importance for patient to contact [facility] or [facility], or go to the nearest emergency room, if patient is ever a danger to self/others, or unable to care for self. Recommend that upon discharge patient establish medication management treatment with a psychiatric provider, establishes routine therapy appointments, and follow-up with primary care provider. Verify patient understands and agrees to these recommendations. 10/30/18 11:26 Subjective: Following up with patient for evaluation of psychosis and safety. Patient reports, "Im tired." With regard to medications patient states, "I do not want to take anything." Objective: Vital Signs Temp Pulse Resp BP Pulse Ox 36.3 C 57 L 14 147/97 H 96 10/30/18 00:30 10/30/18 00:30 10/30/18 00:30 10/30/18 00:30 10/30/18 00:30 NURSING REPORT: Consulted with nursing for update on patients progress in treatment. Nurses report patient is not engaged in treatment, is not attending groups, slept 12 hours, expresses the following psychiatric symptoms: none, exhibits the following psychiatric symptoms: withdrawn from social interactions ; is eating all meals. Patient refusing medications. MSE: The patient is an under-nourished male looking stated chronological age. Attire is appropriate and dress is casual. Grooming status is inappropriate and disheveled. Ambulation is independent. Gait is normal and coordinated. Posture is normal and relaxed. Eye contact is inappropriate. Motor activity is appropriate with purposeful, organized, coordinated movements; with no involuntary movements. Attitude is uncooperative. Patient appears distracted and does not relate well to this interviewer. Language production is unspontaneous. Rate is hesitant. Articulation is clear. Patient reports mood as okay with congruent and inappropriate and constricted, incongruent affect. Patients thought process is non-linear and illogical. Patient denies suicidal thoughts, denies homicidal ideation. Patient denies auditory, visual hallucinations. Patient denies delusions. Patient does not appear to be attending to internal stimuli. Patients attention and concentration are fair. Patient is oriented to person, place. Patients insight and judgment are poor. - Time Spent With Patient Time Spent With Patient: 15 minutes, met with patient individually. - Pending Discharge Pending Discharge Within 24 Hours: No Pending Discharge Within 48 Hours: No ICD10 Worksheet Patient Problems: Problems Problem Status Onset Acute psychosis Acute Schizoaffective disorder Chronic
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
[2018-10-31 06:35] VITALS: BP 128/80
--- NOTE | 2018-10-31 12:07 | BDS ---
[f rep st] BEHAVIORAL HEALTH DISCHARGE SUMMARY REASON FOR ADMISSION: From the ED note dated 10/26/2018, patient presented to the emergency department with rambling speech. Patient reportedly was walking on [facility] in [place], [place] prior to presenting to the emergency department, speaking nonsensically and throwing objects at cars. Patient was picked up by police and brought to the emergency department. Patient was unable to provide any clinical history during the ED evaluation. Patient was admitted involuntarily and on an M1 hold due to being a danger to others and being gravely disabled. Patient was admitted for safety, crisis stabilization, and medication management. ADMITTING DIAGNOSES: 1. Unspecified psychosis. 2. Cannabis use disorder, severe. 3. Amphetamine use disorder, severe. 4. Rule out substance induced psychotic disorder. 5. Rule out schizoaffective disorder. 6. Nicotine dependence. ADMISSION PHYSICAL EXAM: Patient was seen on 10/27/2018, for history and physical contact consultation for medical clearance for inpatient psychiatric hospitalization and treatment. Patient was medically cleared for inpatient psychiatric hospitalization and treatment for further details, please refer to project consultant note document dated 10/27/2018. ADMISSION LABS: 1. CBC within normal limits, except hemoglobin was low at 13.6 and hematocrit was low at 39.92. 2. BMP within normal limits, except glucose is elevated at 104. 3. Hemoglobin A1c was elevated at 6.3. 4. Estimated average glucose was elevated at 134. 5. Liver function within normal limits, except AST was elevated at 114 and ALT was elevated at 152. 6. Lipid panel within normal limits, except non-HDL cholesterol was low at 82, HDL cholesterol was elevated at 93 and LDL/HDL ratio was low at 0.75. 7. Toxicology screen was negative for amphetamines and non-negative for THC, negative for the other substances screened, and negative for ethyl alcohol. MAJOR PROCEDURES OR TESTS: None. HOSPITAL COURSE: The most prominent symptoms and behaviors while the patient was here were avoided social interactions. Patient spent the majority of his time in his room sleeping. Patient did come out for meals. Treatment modalities utilized were milieu and group therapy. Zyprexa Zydis 5 mg p.o. q.4 hours p.r.n. and Ativan 1 mg p.o. q.6 hours p.r.n. for started as needed for anxiety and agitation. These p.r.n. were not needed during the course of the patient's hospitalization. Patient has improved considerably with no signs of psychiatric symptoms and no psychiatric symptoms expressed. Patient reports he has improved since admission, states to be in stable condition, feels safe to discharge, and he contracts for safety. Patients response to treatment was good. There were no adverse or unexpected results of treatment. The patient was safe throughout stay, active in treatment, engaged in groups, and was appropriate with staff. Patient met with treatment team prior to discharge to assess readiness to discharge and review discharge plan. The treatment team consensus is the patient in stable condition, has a safe discharge plan, and is ready to discharge today. CONDITION AT DISCHARGE: Patient is in stable condition and is no longer a danger to self or others, and is not gravely disabled due to mental illness. Patient is no longer in need of inpatient level of care, and can be safely and effectively treated within the community. The patients level of risk at time of discharge is low. MSE: The patient is casually dressed and with good hygiene , and looks stated age. Patient is sitting, posture is upright, and position is relaxed. Patient appears awake, alert, and responds appropriately and reasonably during interview. Patient is engaged, relates well to interviewer, and emotional facial expression is appropriate to situation and changes appropriately with topic. Patient is cooperative, makes comfortable eye contact , and movements are voluntary, deliberate, coordinated, and smooth and even with no inappropriate movements. Patient makes laryngeal sounds effortlessly and shares conversation appropriately; pace of conversation is appropriate, and stream of talking is fluent; articulation is clear and understandable; word choice is effortless and appropriate for education level; completes sentences, occasionally pausing to think; rate and volume are appropriate for interview and setting. Patient reports mood as euthymic. Patients affect is stable with full variable range, congruent with mood, and appropriate to speech and circumstances. Patient has linear and logical thinking, with no loose associations, tangential thought, thought blocking, concrete thinking, or any other signs of formal thought disorder. Patient denies suicidal and homicidal ideation, and denies hallucinations and delusions. Patient appears to be a reliable historian with sound judgement and good insight into current condition. Patient has no apparent dysfunction in recent or remote memory noted , and no evidence of gross cognitive dysfunction noted at any point during the interview. DISCHARGE DIAGNOSES: 1. Unspecified psychosis. 2. Cannabis use disorder, severe. 3. Amphetamine use disorder, severe. 4. Substance induced psychosis. 5. Nicotine dependence. CURRENT MEDICATIONS: After reviewing options risks and benefits with the patient, patient agrees to follow up at [facility] for continued medication evaluation after discharge. DISPOSITION: Patient left hospital independently and voluntarily and plans to [facility] in [place], [place]. FOLLOWUP: plan coordinator reports the appropriate outpatient follow-up services have been established and outpatient appointments have been scheduled. The patient received written instructions with times and dates of outpatient follow-up appointments. The following follow-up recommendations were provided to the patient at discharge: Continue psychotropic medications as prescribed and attend appointments as scheduled. Report any side effects to a psychiatric outpatient provider, a primary care provider, or other health primary care provider. Address any questions or problems concerning the psychotropic medications with a psychiatric outpatient provider, a primary care provider, or other health primary care provider. Contact [facility] or [facility], or go to the nearest emergency room, if you are ever a danger to yourself/others, or unable to care for yourself. As soon as possible, establish a routine medication management treatment with a psychiatric provider, establish routine therapy appointments, and follow-up with a primary care provider. SUBSTANCE ABUSE BRIEF INTERVENTION: Brief intervention regarding the risks of cannabis, nicotine, methamphetamine abuse is provided to patient with goal to reduce the risk of harm that could result from the continued use of cannabis, nicotine, and methamphetamine, with the general aim to investigate the problem, raise awareness of problem, develop a solution with the patient, recommend a specific change or activity, and motivate the patient toward change. Assess substance abuse behavior and give supportive advice about harm reduction, recommend a reduction in hazardous/at-risk consumption patterns, and facilitate referrals for additional specialized treatment with reservoir caretaker. Intermediate goal is for the patient to quit and attend outpatient substance abuse treatment. Intervention focus on intermediate goals to allow for more immediate success in the treatment process to keep the patient motivated. Review following with patient: Cannabis use risks: Short-term use: impaired short-term memory, impaired motor coordination, altered judgement, in high doses paranoia and psychosis. Long-term use addiction, diminished life satisfaction and achievement, symptoms of chronic bronchitis, and increased risk of chronic psychosis disorders if predisposition to such disorders. In withdrawal anger, aggression irritability, anxiety and nervousness, decreased appetite or weight loss, restlessness, and sleep difficulties with strange dreams. Methamphetamine use risks: Short-term: insomnia, irritability, aggressive behavior, hallucinations, delusions, intellectual deficits, anxiety, depression, convulsions, damage to blood vessels in the brain causing strokes, high fevers, collapse of the circulatory system. Long-term: damage to nerve pathways, maybe irreversibly; overstimulation to dopamine impairing dopamine transport and reducing efficiency of dopamine receptors, the reward system becomes worn out, leading to inability to experience pleasure for years. Nicotine dependence: lung cancer, other cancers, heart and circulatory system problems, diabetes, eye problems, infertility and impotence, more prone to respiratory infections, weakened senses, teeth and gum disease, premature aging , second hand smoke. Withdrawal symptoms include strong cravings, anxiety, irritability, restlessness, difficulty concentrating, depressed mood, frustration, anger, increased hunger, insomnia, and constipation or diarrhea. OUTPATIENT SUBSTANCE ABUSE TREATMENT: Patient referred to outpatient provider and treatment for continued treatment related to substance abuse. LEGAL STATUS: Patient was admitted on an M1 hold for involuntary inpatient psychiatric hospitalization and treatment. Patient discharged today independently and voluntarily. Patient was placed on a short-term certification during the course of his hospitalization and short-term certification was terminated at time of discharge. ATTITUDE AT TIME OF DISCHARGE: The patients attitude was positive at time of discharge, and patient reports looking forward to discharging today. The patient reports he feels safe to discharge, is no longer a danger to himself or others, is in stable condition, and contracts for safety. Patient states he will continue medications as prescribed, and establish medication management treatment with an outpatient provider after discharge. Patient reports he understands the information that has been provided to him, and he understands, accepts, and agrees to psychotropic medications. Patient describes internal protective factors as the coping skills he has learned while hospitalized here, and he plans to continue to practice these coping skills after discharge. LABORATORY AND RADIOLOGY STUDIES: There were no pending labs or studies at time of discharge. ADVANCED DIRECTIVES: There were no advance directives on file, and patient was full code during this hospitalization. The following psychotropic medication treatment informed consent and recommendations were provided to the patient at time of discharge. Patient reports he understands, accepts, and agrees to the information that has been provided. PSYCHOTROPIC MEDICATION TREATMENT INFORMED CONSENT and RECOMMENDATIONS: Review nature of condition, diagnosis, and prognosis. Review nature and purpose of psychotropic medication treatment. Review type of psychotropic medications being prescribed. Review risk and benefits of psychotropic medication treatment. Review probable length of time will need to take medications. Review risk and benefits of not undergoing psychotropic medication treatment. Review alternative treatments to psychotropic medications. Review psychotropic medications contraindications, side effects, and importance of reporting any side effects to a psychiatric provider, primary care provider, or other health primary care provider. Review importance of asking a psychiatric provider or primary care provider any questions or problems concerning the psychotropic medications. Review safety plan and the importance to contact [facility] or [facility] , or go to the nearest emergency room, if ever a danger to yourself/others, or unable to care for yourself. Recommend upon discharge to establish routine medication management treatment with a psychiatric provider, establish routine therapy appointments, and follow-up with a primary care provider. Verify patient understands, accepts, and agrees to the information that has been provided. /[id number]
== END 2018-10-31 12:50 | disposition home or self-care (01) | DRG 885 ==
LOC: EDUNIT# → BBEH 10-27 09:45
PROVIDERS: ADMIT Internal Medicine; ATTEND Internal Medicine
DX: F25.0 Schizoaffective disorder, bipolar type (principal); F15.129 Other stimulant abuse with intoxication, unspecified; F15.159 Other stimulant abuse with stimulant-induced psychotic disorder, unspecified; F12.159 Cannabis abuse with psychotic disorder, unspecified; F17.210 Nicotine dependence, cigarettes, uncomplicated
CPT/HCPCS: 80305; G0480

== ENCOUNTER 2019-01-17 14:11 | Emergency (ER) | payer MEDICAID | END 2019-01-17 14:33 | disposition home or self-care (01) ==